=== PATIENT | male | born 1995 ===

== ENCOUNTER 2017-11-04 19:41 | Emergency (ER) | payer BC, OTHER ==
--- NOTE | 2017-11-04 19:45 | ER Report ---
History and Physical Time Seen By MD: 19:44 HPI/ROS CHIEF COMPLAINT: Right knee injury HISTORY OF PRESENT ILLNESS: A 1-year-old male presents a wheelchair to the ER complaint severe right knee pain. Patient states he was playing basketball when he came down, twisting and flexing his knee. He notes pain in the whole knee joint. Patient's unable to bear weight. 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 He was not transported by ambulance. Patient denies any other injuries. He notes 6/10 throbbing pain in his knee elevated by movement and palpation. Allergies: Coded Allergies: No Known Drug Allergies (Unverified , 12/30/13) Home Meds Active Scripts Oxycodone Hcl/Acetaminophen (PERCOCET 5-325 MG TABLET) 1 Each Tablet, 1 EACH PO Q4-6H Y for PAIN, #12 Prov:RIVERA RANDHAWA Bonifacio DO 11/04/17 Reviewed Nurses Notes: Yes Old Medical Records Reviewed: Yes Hx Smoking: No Smoking Status: Never Smoker Exposure to Second Hand Smoke?: No Constitutional Vital Sign - Last 24 Hours 11/04/17 11/04/17 11/04/17 11/04/17 19:49 19:50 20:00 20:11 Temp 98.7 Pulse 61 75 Resp 18 B/P (MAP) 128/87 (101) 128/87 126/84 (98) Pulse Ox 98 96 O2 Delivery Room Air Physical Exam General appearance: Mild distress Respiratory: Chest is non tender, lungs are clear to auscultation. Cardiac: Regular rate and rhythm Extremities: Examination of the right lower extremities reveals a right knee with a small effusion. There is tenderness over the medial aspect. There is no bruising abrasions or obvious deformity. Distal neurovascular functions intact in the right lower extremity., Ligament stress shows only limits are intact. Patient was unable to tolerate Wil's maneuver. DIFFERENTIAL DIAGNOSIS: After history and physical exam differential diagnosis was considered for sprain, strain, fracture, dislocation, contusion, meniscus tear, ligament rupture Medical Decision Making EKG/Imaging Imaging X-ray: Right knee, 3 views was obtained. I viewed the images myself on the PACS system. My interpretation of the images is: No fracture no dislocation or malalignment. The radiologist interpretation had no clinically significant variation from this interpretation. ED Course/Re-evaluation ED Course Patient was admitted to an examination room. H&P was done. The differential diagnoses was considered. On clinical examination. Patient has a swollen knee with mechanism of this brain injury. His x-rays are unremarkable. There is no ligament rupture noted on ligament stressing. An Alvino wrap and covered with a knee immobilizer. He is advised ibuprofen 600 mg 3 times daily. He is given a prescription for Percocet for temporary pain relief. He is advised to follow up with [facility] if unimproved on Wednesday. Decision to Disposition Date: Nov 04, 2017 Decision to Disposition Time: 20:42 Depart Departure Latest Vital Signs Vital Signs Date Time Temp Pulse Resp B/P (MAP) Pulse Ox O2 Delivery O2 Flow Rate FiO2 11/04/17 20:11 75 96 11/04/17 20:00 126/84 (98) 11/04/17 19:50 98.7 18 Room Air Impression: Primary Impression: Sprain of right knee Condition: Improved Disposition: HOME OR SELF-CARE Referrals: RORY GURROLA MD New Scripts Oxycodone Hcl/Acetaminophen (PERCOCET 5-325 MG TABLET) 1 Each Tablet 1 EACH PO Q4-6H Y for PAIN, #12 Prov: RIVERA RANDHAWA DO 11/04/17 Patient Instructions: Knee Sprain (ED) Additional Instructions: Take ibuprofen 200 mg 3-4 tablets 3 times a day with food Apply ice to your knee 30-60 minutes 3-4 times per day for the next 2-3 days Follow-up with Dr. Gurrola if not significantly improved in 5-7 days Problem Qualifiers Primary Impression: Sprain of right knee Encounter type: initial encounter Involved ligament of knee: other ligament Qualified Codes: S83.8X1A - Sprain of other specified parts of right knee, initial encounter RIVERA RANDHAWA DO Nov 04, 2017 19:45
[2017-11-04] MEDS ORDERED: IBUPROFEN 600 MG TAB PO ONE (19:55)
[2017-11-04 20:00] VITALS: BP 126/84
[2017-11-04] MEDS ORDERED: oxyCODONE/ACETAMIN 5/325MG TH 2 TAB/BOTTLE PO ONE (20:40)
[2017-11-04] MEDS ORDERED: OXYC-865 PO (20:43)
--- NOTE | 2017-11-04 21:01 | RADIOLOGY IMAGING REPORT ---
FACILITY: [facility] PATIENT NAME: Sridhar Chan : 1995 MR: [id number] V: [id number] EXAM DATE: ORDERING PHYSICIAN: RIVERA RANDHAWA [place]CHN[place] [facility] [place] : 1995 Visit/Account:[id number] Date of Sevice: 11/04/2017 Technique: KNEE 3 VIEW RIGHT HISTORY: knee injury Comparison studies: None FINDINGS: There is no acute fracture. The alignment of the right knee is maintained. Soft tissues are unremarkable. IMPRESSION: 1. No acute osseous process. Report Dictated By: Sekou Avila DO at 11/04/2017 8:55 PM Report E-Signed By: Sekou Avila DO at 11/04/2017 8:56 PM WSN:[id number]
== END 2017-11-04 20:57 | disposition home or self-care (01) ==
LOC: ER 19:57
DX: S83.8X1A Sprain of other specified parts of right knee, initial encounter (principal); Y93.67 Activity, basketball
CPT/HCPCS: 73562; 99283; L1830